=== PATIENT | male | born 1975 | race Two or more races ===

== ENCOUNTER 2016-09-12 16:04 | Emergency (ER) | payer OTHER ==
[2016-09-12 16:15] VITALS: BP 122/81
[2016-09-12] MEDS ORDERED: ACETAMINOPHEN 325 MG TABLET PO ONE (16:21)
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
== END 2016-09-12 18:07 | disposition home or self-care (01) ==
LOC: ER 16:04
DX: S16.1XXA Strain of muscle, fascia and tendon at neck level, initial encounter (principal); R51 Headache; M54.5 Low back pain; M54.6 Pain in thoracic spine; M54.2 Cervicalgia; M54.9 Dorsalgia, unspecified; M25.519 Pain in unspecified shoulder; V87.7XXA Person injured in collision between other specified motor vehicles (traffic), initial encounter
CPT/HCPCS: 99283